=== PATIENT | male | born 1955 | race Caucasian/White ===

== ENCOUNTER 2018-11-30 06:52 | Day surgery (SDC) | payer BC ==
[~2018-11-30 06:52] MED LIST: Lactated Ringers 1,000 ML IV SCH; Sodium Chloride 0.9% 10 ML Syringe FLUSH PRN
[2018-11-30] MEDS ORDERED: Propofol 200 MG/20 ML SDV IV ONE (06:53)
[2018-11-30] MEDS ORDERED: Lidocaine 1% PF 2 ML SDV INJECT ONE (06:53)
--- NOTE | 2018-11-30 08:18 | PCM.OPNOTE ---
- General Post-Op/Procedure Note Date of Surgery/Procedure: 11/30/18 Operative Procedure(s): c scope Findings: scattered diverticuli Pre Op Diagnosis: screening Post-Op Diagnosis: diverticulosis Anesthesia Technique: Moderate Sedation Primary Surgeon: Lucio Aceves Anesthesia Provider: Tristan Gamble Pathology: none Complications: None Condition: Good Free Text/Narrative:: see dictation
--- NOTE | 2018-11-30 10:54 | OR ---
DATE OF OPERATION: 11/30/2018 SURGEON: Lucio Aceves MD PROCEDURE PERFORMED: Colonoscopy. PREOPERATIVE DIAGNOSIS: Need for screening C-scope. POSTOPERATIVE DIAGNOSIS: Diverticulosis. INDICATIONS FOR PROCEDURE: A 63-year-old white male presents for screening scope. DESCRIPTION OF OPERATION: After an excellent IV sedation was administered, digital rectal exam was performed. No marked abnormality was noted. Flexible colonoscope inserted, advanced to the cecum. The prep was excellent. The following findings were noted. Ascending colon, occasional small diverticula; transverse colon, occasional small diverticula; descending colon, occasional small diverticula; sigmoid, occasional small diverticula. Rectum unremarkable. RECOMMENDATIONS: Repeat colonoscopy in 10 years. /[id number] /[place]
== END 2018-11-30 09:07 | disposition home or self-care (01) ==
LOC: FB.SDS 06:52
PROVIDERS: ATTEND Surgery
DX: Z12.11 Encounter for screening for malignant neoplasm of colon (principal); K57.30 Diverticulosis of large intestine without perforation or abscess without bleeding; N40.1 Benign prostatic hyperplasia with lower urinary tract symptoms; N13.8 Other obstructive and reflux uropathy; I48.91 Unspecified atrial fibrillation; Z79.82 Long term (current) use of aspirin; Z79.899 Other long term (current) drug therapy
CPT/HCPCS: 45378; J2001; J2704; J7120